=== PATIENT | male | born 1945 | race American Indian/Alaskan Native ===

== ENCOUNTER 2016-06-01 10:15 | Outpatient (CLI) | payer MEDICARE ==
--- NOTE | 2016-06-01 11:40 | Ultrasound Report ---
ULTRASOUND ABDOMEN COMPLETE: Technique: Transabdominal ultrasound with color Doppler interrogation. History: Right flank pain. Findings: The liver is normal size, contour and echotexture. The gallbladder dimensions are within normal limits without intraluminal stone, wall thickening, or pericholecystic fluid. The CBD is normal caliber. The visualized portions of the pancreas including the head and proximal body are within normal limits. Both kidneys measure 9.5 cm in length. There are a few scattered cysts in both kidneys measuring up to 2.3 cm on the right and 3.5 cm on the left. No evidence for nephrolithiasis, hypervascular mass or hydronephrosis. The spleen and aorta are within normal limits. No aneurysmal dilatation is noted. No ascites. The bladder is unremarkable. IMPRESSION: Bilateral renal cysts. Otherwise, unremarkable exam of the abdomen and pelvis.
== END 2016-06-01 10:16 | disposition home or self-care (01) ==
LOC: US 10:15
PROVIDERS: ATTEND Internal Medicine
DX: N28.1 Cyst of kidney, acquired (principal)
CPT/HCPCS: 76700

== ENCOUNTER 2017-04-12 13:37 | Outpatient (CLI) | payer MEDICARE ==
--- NOTE | 2017-04-12 16:52 | XRay Report ---
FINAL REPORT EXAM: XR CHEST ROUTINE 2V HISTORY: OSTEOARTHRITIS TECHNIQUE: PA and lateral views of the chest PRIORS: None. FINDINGS: Lines, tubes, and devices: N/A Lungs and pleura: Trachea is normal in position. Lungs are clear of infiltrate, pleural effusion, vascular congestion, or pneumothorax. Cardiomediastinal silhouette: Cardiac and mediastinal silhouettes are unremarkable. Other: Bony structures are intact. There is incidental colonic interposition between the right diaphragm and liver. IMPRESSION: No acute cardiopulmonary process seen.
== END 2017-04-12 13:38 | disposition home or self-care (01) ==
LOC: XRAY 13:37
PROVIDERS: ATTEND Internal Medicine
DX: M19.90 Unspecified osteoarthritis, unspecified site (principal)
CPT/HCPCS: 71046